=== PATIENT | female | born 1965 | race Caucasian/White ===

== ENCOUNTER 2023-05-26 02:11 | Emergency (ER) | payer SELFPAY ==
[~2023-05-26] VITALS: Ht 172.7 cm; Wt 92.2 kg
[2023-05-26 03:58] VITALS: O2SAT 97
[2023-05-26 06:59] LABS: BASOPHILS % 1.3 % (0.0-2.0); EOSINOPHILS % 3.3 % (0.0-5.0); HEMATOCRIT. 38.5 % (36.0-48.0); HEMOGLOBIN. 12.9 g/dL (12.0-16.0); MEAN CORPUSCULAR HEMOGLOBIN 30.4 pg (28.0-32.0); MEAN CORPUSCULAR HGB CONC 33.4 g/dL (31.0-37.0); MEAN PLATELET VOLUME 8.2 fl (7.4-10.4); MONOCYTES % 9.7 % (2.0-8.0); NEUTROPHILS % 60.7 % (40.0-76.0); PLATELET 254 x1000/uL (130-400); RED BLOOD CELL COUNT 4.24 mill/uL (4.2-5.4); RED CELL DISTRIBUTION WIDTH 13.1 % (11.6-14.6); WHITE BLOOD COUNT 5.2 x1000/uL (4.5-11.0)
[2023-05-26 07:13] LABS: ALANINE AMINOTRANSFERASE 15 IU/L (10-49); ALBUMIN 4.3 g/dL (3.2-4.8); ASPARTATE AMINOTRANSFERASE 18 IU/L (<34); BILIRUBIN TOTAL 0.9 mg/dL (0.1-1.0); CALCIUM 9.1 mg/dL (8.7-10.4); CARBON DIOXIDE 28 mEq/L (21-32); CHLORIDE 107 mEq/L (98-107); CREATININE 0.7 mg/dL (0.6-1.0); GLUCOSE 93 mg/dL (70-105); POTASSIUM 3.9 mEq/L (3.5-5.1); PROTEIN TOTAL 6.5 g/dL (6.0-8.3); SODIUM 141 mEq/L (136-145); UREA NITROGEN BLOOD 10 mg/dL (9-23)
[2023-05-26] MEDS ORDERED: NAPR-1176 MT (07:32)
[2023-05-26] MEDS ORDERED: DOXY100C5 MT (07:32)
[2023-05-26] MEDS ORDERED: CEPH500C2 MT (07:32)
[2023-05-26 08:08] VITALS: BP 135/62; PULSE 71; RESP 17; TEMP 98.7
== END 2023-05-26 08:09 | disposition home or self-care (01) ==
LOC: ER 02:11
DX: M16.12 Unilateral primary osteoarthritis, left hip (principal); L03.116 Cellulitis of left lower limb
CPT/HCPCS: 36415; 73502; 80053; 85025; 93971; 99284